=== PATIENT | female | born 1975 | race Caucasian/White ===

== ENCOUNTER 2021-04-24 18:09 | Emergency (ER) | payer SELFPAY ==
[~2021-04-24] VITALS: Ht 177.8 cm; Wt 112.0 kg
[2021-04-24 19:23] VITALS: BP 141/82
[2021-04-24] MEDS ORDERED: FLUC150T PO (19:29)
[2021-04-24] MEDS ORDERED: CEPH500C PO (19:29)
[2021-04-24] MEDS ORDERED: CEPHALEXIN 250 MG CAPSULE PO ONE (19:30)
[2021-04-24] MEDS ORDERED: FLUCONAZOLE 100 MG TABLET. PO ONE (19:30)
--- NOTE | 2021-04-24 19:30 | PHYS DOC ---
Past History Past Medical History: Anxiety, Bipolar, Depression (CLINT RICHARD DO) Past Surgical History: No Surgical History (KARI HILL) Past Surgical History: No Surgical History (CLINT RICHARD DO) Alcohol Use: None (KARI HILL) Smoking: Non-smoker Alcohol Use: None Drug Use: None (CLINT RICHARD DO) General Adult EDM: Chief Complaint: BLISTER/COLD SORE HPI: HPI: Patient is a 46 year old female who presents with a rash on her left foot. Patient states that she moved to [place] from [place] in September of this year, and has had issues with a rash on her foot since then. In the past, she has treated the rash with a triple antibiotic ointment, tea tree oil, mint oil Epsom salt soaks. She states she is now "losing the lawrence," and seeks further treatment. Patient reports multiple blisters, some of which have burst. Patient denies history of diabetes or chronic fungal infection. Patient denies fever, chills, rash elsewhere, and injury. Patient has no other complaints at this time. (KARI HILL) Review of Systems: Review of Systems: 12 systems reviewed. ROS negative except as mentioned in HPI. (KARI HILL) Allergies: Allergies: Allergies Coded Allergies Type Severity Reaction Last Updated Verified No Known Drug Allergies 04/24/21 No (KARI HILL) Physical Exam: PE: Constitutional: Well developed, well nourished, no acute distress, non-toxic appearance. Cardiovascular: Heart rate regular rhythm, no murmur. Lungs & Thorax: Bilateral breath sounds clear to auscultation. Skin: Bullous and moist rash in the interphalangeal webspaces of the left foot, some vesicles broken and some intact, skin is very moist without significant erythema. Skin elsewhere warm, dry, no erythema, no rash. Extremities: No tenderness, no cyanosis, no clubbing, ROM intact, no edema. (KARI HILL) Current Patient Data: Vital Signs: Vital Signs Date Time Temp Pulse Resp B/P (MAP) Pulse Ox O2 Delivery O2 Flow Rate FiO2 04/24/21 18:19 97.8 98 18 135/89 (104) 100 Room Air (KARI HILL) Heart Score: C/O Chest Pain: No (KARI HILL) Course & Med Decision Making: Course & Med Decision Making Pertinent Labs and Imaging studies reviewed. (See chart for details) Patient's rash consistent with bullous tinea pedis in the interphalangeal webspaces of the left foot. Patient has had the current rash for several months. Should be prescribed p.o. fluconazole. As some of the blisters have opened, she will be treated empirically with Keflex. I have encouraged the patient to keep her feet dry and clean. Patient understands and is agreeable to discharge plan. (KARI HILL) Dragon Disclaimer: Dragon Disclaimer: This electronic medical record was generated, in whole or in part, using a voice recognition dictation system. (KARI HILL) Departure Departure: Impression: Primary Impression: Tinea pedis of left foot Disposition: HOME / SELF CARE / HOMELESS Condition: STABLE Referrals: PCP,NO (PCP) ALVINA GALVEZ DPM Patient Instructions: Athlete's Foot, [id number] Additional Instructions: You are provided with prescriptions for an oral antifungal medication as well as an antibiotic. Keep your foot dry. Return to the emergency department for worsening rash or if you develop new symptoms. If needed you may follow-up with podiatry for recurrent or nonhealing rash. Scripts Cephalexin (KEFLEX) 500 Mg Capsule 1 CAP PO QID for empiric cellulitis, #40 CAP Prov: KARI HILL 04/24/21 Fluconazole (DIFLUCAN) 150 Mg Tablet 1 TAB PO WEEKLY for bullous tinea pedis, #4 TAB 1 Refill Take 1 tablet by mouth once per week for 4 weeks. Prov: KARI HILL 04/24/21 Attending Signature Attending Signature I have reviewed the PA/KENO TERMINAL OPERATOR's note and plan of care. I was available for consultation as needed during the patient's visit in the emergency department. I agree with the clinical impression, plan, and disposition. (CLINT RICHARD DO) KARI HILL Apr 24, 2021 19:30 CLINT RICHARD DO Apr 24, 2021 23:28
== END 2021-04-24 19:50 | disposition home or self-care (01) ==
LOC: ER 18:09
DX: B35.3 Tinea pedis (principal); F41.9 Anxiety disorder, unspecified; F31.9 Bipolar disorder, unspecified
CPT/HCPCS: 99283